=== PATIENT | male | born 1930 | race Caucasian/White ===

== ENCOUNTER 2017-04-16 02:30 | Emergency (ER) | payer MEDICARE, BC ==
[~2017-04-16] VITALS: Ht 172.7 cm; Wt 83.9 kg
[2017-04-16] MEDS ORDERED: OLME20TA24 (02:39)
[2017-04-16] MEDS ORDERED: FURO40TA4 (02:39)
[2017-04-16] MEDS ORDERED: NITR1PAT62 (02:39)
[2017-04-16] MEDS ORDERED: CLOP75TA28 (02:39)
[2017-04-16 02:43] LABS: BASOPHILS % (AUTO) 0 % (0-10); EOSINOPHILS # (AUTO) 0.2 10^3/uL (0.0-0.3); EOSINOPHILS % (AUTO) 4 % (0-10); LYMPHOCYTES # (AUTO) 1.5 X 10^3 (1.0-4.0); LYMPHOCYTES % (AUTO) 26 % (12-44); MEAN CORPUSCULAR HEMOGLOBIN 31 PG (25-34); MEAN CORPUSCULAR HGB CONC 33 G/DL (32-36); MEAN CORPUSCULAR VOLUME 93 FL (80-99); MEAN PLATELET VOLUME 11.4 FL (7.4-10.4); MONOCYTES # (AUTO) 0.7 X 10^3 (0.0-1.0); MONOCYTES % (AUTO) 13 % (0-12); NEUTROPHILS # (AUTO) 3.2 X 10^3 (1.8-7.8); NEUTROPHILS % (AUTO) 57 % (42-75); PLATELET COUNT 197 10^3/uL (130-400); RED BLOOD COUNT 3.86 10^6/uL (4.35-5.85); RED CELL DISTRIBUTION WIDTH 13.3 % (10.0-14.5); WHITE BLOOD COUNT 5.6 10^3/uL (4.3-11.0)
[2017-04-16 02:50] LABS: PROTHROMBIN TIME PATIENT 13.3 SEC (12.2-14.7)
--- NOTE | 2017-04-16 03:01 | ED Chest Pain ---
General Chief Complaint: Chest Pain Stated Complaint: CP Source: patient, EMS History of Present Illness Time seen by provider: 02:40 Initial Comments PT ARRIVES VIA EMS FROM HOME C/O CHEST PAIN SINCE 0 TONIGHT HAS HAD SHORTNESS OF BREATH AND SWEATS WITH IT PT HAS SEVERE CAD AND HAS HAD CABG AND MULTIPLE STENTS/INTERVENTIONS--LAST TIME WAS spring. WAS TOLD AT THAT TIME THAT NOTHING ELSE COULD BE DONE PT STATES HE HAS CHEST PAIN WITH MINIMAL EXERTION ALL THE TIME, BUT HAS GRADUALLY BEEN GETTING WORSE THE LAST FEW MONTHS. STATES ON Tuesday04/14/17, HE WENT TO [employer] IN [place] AND "ABOUT DIDN'T MAKE IT BACK TO THE CAR" DUE TO SEVERE CP, SHORTNESS OF BREATH, SWEATS, ETC. DID NOT SEEK CARE AT THAT TIME FREQUENCY OF EPISODES OF CHEST PAIN HAS GREATLY INCREASED OVER THE LAST FEW DAYS. STATES NORMALLY THE PAIN GOES AWAY WITH NTG. TONIGHT, THE PAIN WOULD GO AWAY BRIEFLY WITH NTG, BUT IT KEPT COMING BACK. STATES HE WOULD TAKE 1-2 NTG AND PAIN WOULD GO AWAY FOR ALMOST AN HOUR AND HE WOULD BE ABLE TO GO BACK TO SLEEP, THEN IT WOULD WAKE HIM UP AGAIN, AND WOULD TAKE ANOTHER NTG, AND IT WOULD GO AWAY AGAIN FOR A LITTLE WHILE. PT HAS TAKEN NTG X 5 TONIGHT, THEN THE LAST TIME IT WOULD NOT GO AWAY PT GIVEN 324 MG ASPIRIN BY EMS--TAKES 81 MG DAILY, PLUS PLAVIX EMS ALSO GAVE 10 MG MORPHINE WITH COMPLETE RELIEF OF PAIN PT HAS NTG PATCH THAT HE PUTS ON DURING THE DAY, THEN REMOVES AT HS. HAS REMOVED IT EARLIER THIS EVENING PT SEES DR. CASAREZ--LAST SEEN 2 MONTHS AGO FOR ROUTINE EXAM. NEXT APPOINTMENT 04/26/17 Allergies and Home Medications Allergies Coded Allergies: No Known Drug Allergies (Unverified , 04/16/17) Home Medications Clopidogrel Bisulfate 75 Mg Tablet, (Reported) Furosemide 40 Mg Tablet, (Reported) Nitroglycerin 1 Each Patch.td24, (Reported) Olmesartan Medoxomil 20 Mg Tablet, (Reported) Review of Systems Constitutional: see HPI, diaphoresis, weakness EENTM: No Symptoms Reported Respiratory: See HPI, SOA With Exertion Cardiovascular: See HPI, Chest Pain, Denies Edema, Denies Lightheadedness, Denies Palpitations, Denies Syncope Gastrointestinal: No Symptoms Reported, Denies Abdominal Pain, Denies Nausea, Denies Vomiting Genitourinary: No Symptoms Reported Musculoskeletal: no symptoms reported Skin: no symptoms reported Psychiatric/Neurological: No Symptoms Reported Endocrine: No Symptoms Reported Hematologic/Lymphatic: No Symptoms Reported Past [id number] Hx Patient Social History Alcohol Use: Denies Use Recreational Drug Use: No Smoking Status: Never a Smoker Recent Foreign Travel: No Contact w/Someone Who Travel: No Recent Hopitalizations: No Physical Abuse: No Sexual Abuse: No Mistreated: No Fear: No Surgeries History of Surgeries: Yes (BACK SURGERY; 4 VESSEL CABG; CARDIAC CATHS WITH STENTS X 5 / MULTPLE INTERVENTIONS) Surgeries: Cardiac, CABG, Coronary Stent, Gallbladder, Orthopedic Respiratory History of Respiratory Disorde: No Cardiovascular History of Cardiac Disorders: Yes (4 VESSEL BYPASS, STENT X5) Cardiac Disorders: Atrial Fibrillation, Chronic Edema/Swelling, Coronary Artery Disease, Heart Attack, High Cholesterol, Hypertension Neurological History of Neurological Disord: Yes (CVA LEFT SIDE WEAKNESS) Neurological Disorders: Stroke Genitourinary History of Genitourinary Disor: No Gastrointestinal History of Gastrointestinal Di: Yes (S/P JOHNNY) Gastrointestinal Disorders: Gall Bladder Disease Musculoskeletal History of Musculoskeletal Dis: Yes (S/P BACK SURGERY) Endocrine History of Endocrine Disorders: No HEENT History of HEENT Disorders: No Cancer History of Cancer: No Psychosocial History of Psychiatric Problem: No Suicide Risk Score: 0 Integumentary History of Skin or Integumenta: No Physical Exam Vital Signs Vital Sign - Last 12Hours 04/16/17 02:30 Temp 96.7 Pulse 87 Resp 16 B/P (MAP) 141/105 (117) Pulse Ox 94 O2 Delivery Room Air Capillary Refill : Less Than 3 Seconds General Appearance: No Apparent Distress, WD/WN HEENT: PERRL/EOMI Neck: Full Range of Motion, Normal Inspection, Non Tender, Supple, No JVD Respiratory: Normal Breath Sounds, No Accessory Muscle Use, No Respiratory Distress Cardiovascular: No JVD, Normal Peripheral Pulses, Systolic Murmur (3/6), Irregularly Irregular Gastrointestinal: Normal Bowel Sounds, No Organomegaly, No Pulsatile Mass, Non Tender, Soft Extremity: Normal Range of Motion, Non Tender, No Calf Tenderness, Pedal Edema (TRACE TO 1+ BILATERALL7) Neurologic/Psychiatric: Alert, Oriented x3, No Motor/Sensory Deficits, Normal Mood/Affect, 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 Norm as Tested Skin: Normal Color, Warm/Dry Progress/Results/Core Measures Results/Orders Lab Results Laboratory Tests Test 04/16/17 02:35 Range/Units White Blood Count 5.6 4.3-11.0 10^3/uL Red Blood Count 3.86 L 4.35-5.85 10^6/uL Hemoglobin 11.9 L 13.3-17.7 G/DL Hematocrit 36 L 40-54 % Mean Corpuscular Volume 93 80-99 FL Mean Corpuscular Hemoglobin 31 25-34 PG Mean Corpuscular Hemoglobin Concent 33 32-36 G/DL Red Cell Distribution Width 13.3 10.0-14.5 % Platelet Count 197 130-400 10^3/uL Mean Platelet Volume 11.4 H 7.4-10.4 FL Neutrophils (%) (Auto) 57 42-75 % Lymphocytes (%) (Auto) 26 12-44 % Monocytes (%) (Auto) 13 H 0-12 % Eosinophils (%) (Auto) 4 0-10 % Basophils (%) (Auto) 0 0-10 % Neutrophils # (Auto) 3.2 1.8-7.8 X 10^3 Lymphocytes # (Auto) 1.5 1.0-4.0 X 10^3 Monocytes # (Auto) 0.7 0.0-1.0 X 10^3 Eosinophils # (Auto) 0.2 0.0-0.3 10^3/uL Basophils # (Auto) 0.0 0.0-0.1 10^3/uL Prothrombin Time 13.3 12.2-14.7 SEC INR Comment 1.0 0.8-1.4 Activated Partial Thromboplast Time 32 24-35 SEC Sodium Level 140 135-145 MMOL/L Potassium Level 3.9 3.6-5.0 MMOL/L Chloride Level 105 98-107 MMOL/L Carbon Dioxide Level 24 21-32 MMOL/L Anion Gap 11 5-14 MMOL/L Blood Urea Nitrogen 20 H 7-18 MG/DL Creatinine 1.88 H 0.60-1.30 MG/DL Estimat Glomerular Filtration Rate 34 BUN/Creatinine Ratio 11 Glucose Level 109 H 70-105 MG/DL Calcium Level 9.5 8.5-10.1 MG/DL Total Bilirubin 0.3 0.1-1.0 MG/DL Aspartate Amino Transf (AST/SGOT) 25 5-34 U/L Alanine Aminotransferase (ALT/SGPT) 18 0-55 U/L Alkaline Phosphatase 63 40-136 U/L Total Creatine Kinase 79 30-200 U/L Creatine Kinase MB 1.2 <6.6 NG/ML Troponin I 1.42 *H <0.30 NG/ML B-Type Natriuretic Peptide 525.2 H <100.0 PG/ML Total Protein 7.0 6.4-8.2 GM/DL Albumin 3.9 3.2-4.5 GM/DL Amylase Level 67 25-125 U/L Lipase 21 8-78 U/L My Orders Orders - AFSHAN ADAMS DO Amylase (04/16/17 02:37) Cbc With Automated Diff (04/16/17 02:37) Comprehensive Metabolic Panel (04/16/17 02:37) Creatine Kinase (04/16/17 02:37) Creatine Kinase Mb (04/16/17 02:37) Lipase (04/16/17 02:37) Partial Thromboplastin Time (04/16/17 02:37) Protime With Inr (04/16/17 02:37) Troponin I (04/16/17 02:37) Chest 1 View, Ap/Pa Only (04/16/17 02:37) O2 (04/16/17 02:37) Ekg Tracing (04/16/17 02:37) BNP (04/16/17 02:37) Monitor-Rhythm Ecg Trace Only (04/16/17 02:37) Nitroglycerin Ointment (Nitrobid Ointme (04/16/17 03:15) Morphine Injection (Morphine Injection (04/16/17 03:21) Furosemide Injection (Lasix Injection) (04/16/17 03:30) Metoprolol Succinate (Xl) Tab (Toprol Xl (04/16/17 03:45) Heparin Drip 52210 Unit/500ml (Heparin (04/16/17 03:34) Heparin (Bolus Per Protocol) (Heparin (B (04/16/17 03:45) Ekg Tracing (04/16/17 04:06) Morphine Injection (Morphine Injection (04/16/17 04:06) Medications Given in ED Current Medications Medications Dose Ordered Sig/Sadie Route Start Time Stop Time Status Last Admin Dose Admin Furosemide 80 mg ONCE ONCE IVP 12/9/17 03:30 04/16/17 03:31 UNV 04/16/17 03:38 80 MG Heparin Sodium (Porcine) HEPARIN FULL PROTOC... ONCE ONCE IV 04/16/17 03:45 04/16/17 03:46 DC 04/16/17 04:02 5,000 UNIT Heparin Sodium/ Dextrose 500 ml @ 0 mls/hr Q0M ONCE IV 04/16/17 03:34 04/16/17 03:37 DC 04/16/17 04:05 20 MLS/HR Nitroglycerin 1 inch ONCE ONCE TOP 04/16/17 03:15 04/16/17 03:21 DC 04/16/17 03:20 1 INCH Vital Signs/I&O Vital Sign - Last 12Hours 04/16/17 04/16/17 02:30 02:30 Temp 96.7 Pulse 87 Resp 16 B/P (MAP) 141/105 (117) Pulse Ox 94 O2 Delivery Room Air Room Air Progress Note : Progress Note NITROPASTE APPLIED FOR PERSISTENT HTN--150-160/100'S PAIN BEGAN TO START AGAIN-UP TO 09/15--GAVE MORPHINE PAIN EASED--NO CHANGE IN EKG BP DOWN WITH MEDICATIONS OTHERWISE UNEVENTFUL ER STAY ECG Initial ECG Impression Time: 02:31 Initial ECG Rate: 80 Initial ECG Rhythm: Normal Sinus (FREQUENT PAC'S) Initial ECG Impression: Nonspecific Changes (ST DEPRESSION ANTERIOR/LATERALLY AND INFERIORLY. LAFB. 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 ACCEPTS PT FOR ADMIT. WOULD LIKE PT TO HAVE FULL HEPARIN--BOLUS + DRIP. WILL ALSO GIVE TOPROL XL 25 MG PO. Impression Impression: Primary Impression: Non-STEMI (non-ST elevated myocardial infarction) Additional Impressions: CHF (congestive heart failure) HX OF CABG AND MULTIPLE STENTS Valvular heart disease Disposition: 02 XFER SHT-TRM HOSP Condition: Improved Departure-Patient Inst. Referrals: NO,LOCAL PHYSICIAN (PCP) Primary Care Physician AFSHAN ADAMS DO Apr 16, 2017 03:01
[2017-04-16 03:07] LABS: ALBUMIN 3.9 GM/DL (3.2-4.5); BILIRUBIN,TOTAL 0.3 MG/DL (0.1-1.0); CALCIUM 9.5 MG/DL (8.5-10.1); CREATININE SERUM 1.88 MG/DL (0.60-1.30); POTASSIUM 3.9 MMOL/L (3.6-5.0)
[2017-04-16] MEDS ORDERED: NITROGLYCERIN 2% OINT 1 GM UNIT DOSE PACKET TOP ONE (03:15)
[2017-04-16 03:16] LABS: TROPONIN I 1.42 NG/ML (<0.30)
[2017-04-16] MEDS ORDERED: morphine INJ 10 MG/ML 1ML (SYR OR VIAL) IVP STA ×2 (03:21→04:06)
[2017-04-16] MEDS ORDERED: FUROSEMIDE 40 MG/4 ML INJ (LASIX) IVP ONE (03:30)
[2017-04-16] MEDS ORDERED: HEParin DRIP 25000 UNIT/500ML 500 ML IV ONE (03:34)
[2017-04-16] MEDS ORDERED: HEParin 1000 UNIT/ML (10ML VIAL) FOR BOLUS IV ONE (03:45)
[2017-04-16] MEDS ORDERED: meTOproloL SUCCINATE 50 MG (TOPROL XL) TAB PO SCH (03:45)
[2017-04-16 04:41] VITALS: BP 123/92
--- NOTE | 2017-04-16 07:17 | Diagnostic Imaging Report ---
INDICATION: Chest pain new onset. FINDINGS: Portable chest shows cardiomegaly. Median sternotomy changes are present. Lungs are well-aerated. There is no evidence of pulmonary edema. There are no infiltrates. No hilar adenopathy. No pneumothorax or pleural effusion. IMPRESSION: Cardiomegaly with no acute changes demonstrated. Dictated by: Dictated on workstation # [id number]
== END 2017-04-16 04:41 | disposition short-term general hospital (02) ==
LOC: ER 02:34
DX: I21.4 Non-ST elevation (NSTEMI) myocardial infarction (principal); I11.0 Hypertensive heart disease with heart failure; I50.9 Heart failure, unspecified; I25.10 Atherosclerotic heart disease of native coronary artery without angina pectoris; I48.91 Unspecified atrial fibrillation; E78.00 Pure hypercholesterolemia, unspecified; Z86.73 Personal history of transient ischemic attack (TIA), and cerebral infarction without residual deficits; Z90.49 Acquired absence of other specified parts of digestive tract; Z95.5 Presence of coronary angioplasty implant and graft; Z95.1 Presence of aortocoronary bypass graft
CPT/HCPCS: 36415; 71010; 80053; 82150; 82550; 82553; 83690; 83880; 84484; 85025; 85610; 85730; 93041